=== PATIENT | male | born 1955 | race Two or more races ===

== ENCOUNTER 2022-09-08 12:36 | Emergency (ER) | payer OTHER, SELFPAY ==
--- NOTE | ~2022-09-08 | XR_ITS ---
EXAMINATION: XR ANKLE, RIGHT CLINICAL INFORMATION: Right ankle pain and swelling. COMPARISON: None available. TECHNIQUE: AP, lateral, and mortise views of the right ankle. Indicator arrow points to the lateral ankle. FINDINGS: The ankle joint and mortise are intact. There is no acute fracture or dislocation. The tarsal bones are normally aligned. Mild soft tissue swelling. XR/XR ankle RT min 3V IMPRESSION: Mild soft tissue swelling without acute underlying osseous abnormality.
--- NOTE | ~2022-09-08 | XR_ITS ---
EXAMINATION: XR FOOT, RIGHT CLINICAL INFORMATION: Right foot pain and swelling. COMPARISON: None available. TECHNIQUE: AP, lateral, and oblique views of the right foot. An indicator arrow points to the lateral foot. FINDINGS: The bones and soft tissues are normal. No fracture. Alignment is anatomic. Joint spaces are maintained. XR/XR foot RT min 3V IMPRESSION: Unremarkable right foot.
--- NOTE | ~2022-09-08 | US_ITS ---
EXAMINATION: US VENOUS ULTRASOUND WITH DOPPLER LOWER EXTREMITY, RIGHT CLINICAL INFORMATION: Right lower extremity edema. COMPARISON: None available. TECHNIQUE: Ultrasound of the deep veins is performed from the hip to the calf with compression sonography and color and pulse Doppler assessment. Spectral analysis with color-flow imaging is performed. FINDINGS: There is normal venous compression and respiratory variation and augmented flow. The visualized common femoral vein, superficial femoral vein, profunda femoral vein, popliteal vein, and the trifurcation region shows no evidence of deep venous thrombosis. No right popliteal cyst. The subcutaneous soft tissues are unremarkable. US/US venous duplex LE RT IMPRESSION: No evidence for deep venous thrombosis in the visualized veins of the right lower extremity.
--- NOTE | 2022-09-08 13:13 | ED_ITS ---
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 Reports difficulty walking and pain with weight bearing on his RLE, currently using a cane to ambulate. States his pain starts in his R foot and radiates up into his R lower leg. Denies fever, chills, cp, SOB, N/V, numbness/ tingling/ weakness. Denies hx of gout or VTE. Not currently on AC or diuretics. Related Data Allergies Allergy/AdvReac Type Severity Reaction Status Date / Time No Known Allergies Allergy Verified 09/08/22 13:21 Review of Systems Review of Systems: Constitutional: No Fever, No Chills ENT/Mouth: No Ear Pain, No Nasal Congestion Cardiovascular: No Chest Pain, No SOB Respiratory: No Cough, No Sputum, No Wheezing Gastrointestinal: No Nausea, No Vomiting, No Diarrhea, No Constipation, No Abdominal pain Genitourinary: No Dysuria, No Urinary Frequency, No Hematuria Musculoskeletal: + joint pain, No Myalgias, + Joint Swelling Skin: No Skin Lesions, No rash Neuro: No Weakness, No Numbness, No Paresthesias Yes all other systems are reviewed and are negative Constitutional: Constitutional: Reports as per [facility] Past Medical History Attestation statement: The following information was validated with the patient. Source: old records reviewed Social History Social History Alcohol intake: never Smoked in Last 30 Days: No Use of substances other than those prescribed or required for medical reasons: No Advance Directives: No Advance Directives Information Provided: Yes Advance Directives on File: No Physical Exam Vital Signs: Vital Signs: Last Vital Signs Temp 98.5 F 09/08/22 13:15 Pulse 78 09/08/22 17:36 Resp 16 09/08/22 17:36 BP 148/86 H 09/08/22 17:36 Pulse Ox 97 09/08/22 17:36 O2 Del Method Room Air 09/08/22 17:36 BMI result Body Mass Index 21.4 Const: General: cooperative, healthy appearing and no acute distress Orientation/consciousness: patient oriented x3 Limitations: no limitations HEENT: Head: Yes normal to inspection and Yes atraumatic Ears: hearing grossly normal bilaterally General nose exam: Normal external nose present Face and sinus: Yes normal facial exam Eyes: General: appearance normal, both eyes and all related structures EOM: EOMs intact bilaterally Neck: Neck: Yes normal visual inspection and Yes no meningeal signs Resp: Effort & Inspection: normal respiratory effort and no respiratory distress Auscultation: clear to auscultation bilaterally Cardio: Rate: regular rate Heart sounds: S1 normal heart sound present and S2 normal heart sound present Peripheral pulses: Peripheral pulses 2+ throughout GI: Inspection: Yes normal to inspection Skin: Rashes: no rashes Wounds: no wounds Neuro: General: patient oriented x3, tone normal and no meningeal signs Gait exam (Neuro): Normal gait present Extrem: Other: + R ankle and R foot with swelling, tender to palpation with dec ROM 2/2 pain/swelling. No overlying cyanosis, erythema, warmth. + Right calf tender and firm to palpation. Compartments soft. Neurovascularly intact. Sensation intact. Right upper extremity: normal to inspection Left upper extremity: normal to inspection Right lower extremity: edema; abnormal to inspection, ROM limited and no cyanosis Left lower extremity: normal to inspection Course Course Course Narrative: RME - 67 yo [place] speaking male with history of osteoarthritis, [place], HTN presents to the ER for evaluation of 3 days of nontraumatic RLE swelling and pain, making it hard for him to walk. No chest pain or SOB. On exam he has pitting edema of the ankle and foot only, warm but not erythematous. No pretibial swelling, no calf tenderness. Plan: lab workup, x-rays foot and ankle, LE US - 1700-- XR/XR foot RT min 3V IMPRESSION: Unremarkable right foot. XR/XR ankle RT min 3V IMPRESSION: Mild soft tissue swelling without acute underlying osseous abnormality. US/US venous duplex LE RT IMPRESSION: No evidence for deep venous thrombosis in the visualized veins of the right lower extremity. ? > Labs unremarkable. Will apply BHAVIK for compression/comfort and have patient follow-up with PCP Results discussed with patient including worrisome signs and symptoms and strict return precautions, and when to return to the emergency department. They verbalized understanding and feel safe for discharge at this time. Medical Decision Making Medical Decision Making [facility] Narrative: 67 year old male with history of arthritis requiring steroid injections 4 mo ago presenting to the ED complaining of constant RLE and right ankle pain/ swelling since waking up 3 days ago. VSS, physical exam significant for R ankle/ foot swelling and tenderness to palpation with a tender R calf. Concern for ankle sprain/strain vs occult fracture vs DVT vs peripheral edema. No evidence of cellulitis. Low suspicion for compartment syndrome, septic joint/arthritis or gout Plan: labs ordered in triage, foot/ ankle xray, US of LE Please refer to course for remaining clinical decision making, interpretation of labs/imaging results, and discussions with consultants and/or family members. Differential Diagnosis Differential Diagnoses: The differential diagnosis associated with the presentation includes As above Lab Data [facility] Lab Attestation statement: I reviewed the patient's lab results. 09/08/22 13:26 09/08/22 13:26 Labs: Lab Results 09/08/22 09/08/22 09/08/22 Range/Units 13:26 13:26 13:26 WBC 8.7 (4.8-10.8) X10*3/uL RBC 4.70 (4.60-5.80) X10*6/uL Hgb 13.9 L (14.0-18.0) g/dl Hct 43.0 (42.0-52.0) % MCV 91.5 (80.0-98.0) fL MCH 29.6 (27.0-33.0) pg MCHC 32.3 (31.0-36.0) g/dl RDW 12.4 (11.0-16.0) % Plt Count 208 (160-400) X10*3/uL MPV 10.6 (9.4-12.4) fL Immature Gran % (Auto) 0.5 H (0.0-0.4) % Neut % (Auto) 79.2 H (45-73) % Lymph % (Auto) 12.2 L (20-40) % [place] % (Auto) 7.2 (2-11) % Eos % (Auto) 0.6 (0-4) % Baso % (Auto) 0.3 (0-2) % Lymph # (Auto) 1.1 L (1.2-4.9) X10*3/uL [place] # (Auto) 0.6 (0.1-1.2) X10*3/uL Eos # (Auto) 0.1 (0.0-0.4) X10*3/uL Baso # (Auto) 0.0 (0.0-0.2) X10*3/uL Abs Immat Gran (auto) 0.04 H (0.00-0.03) X10*3/uL Absolute Neuts (auto) 6.9 (2.0-8.3) x10*3/uL Absolute Nucleated RBC 0.000 (0.0-0.012) X10*3/uL Nucleated RBC % (auto) 0.0 (0.0-0.2) /100WBC Sodium 140 (135-145) mmol/L Potassium 4.1 (3.3-5.1) mmol/L Chloride 103 (96-108) mmol/L Carbon Dioxide 31 H (22-29) mmol/L Anion Gap 10 L (12-20) BUN 9 (9-16) mg/dL Creatinine 0.88 (0.5-1.4) mg/dL Estim Creat Clear Calc 73.7 Estimated GFR > 60 Random Glucose 145 H (60-115) mg/dL Calcium 9.3 (8.4-10.2) mg/dL Magnesium 1.9 (1.6-2.6) mg/dL Total Bilirubin 0.9 (0.0-1.0) mg/dL Direct Bilirubin 0.2 (0.0-0.5) mg/dL AST 18 (5-37) U/L ALT 13 (0-40) U/L Alkaline Phosphatase 76 (39-117) U/L B-Natriuretic Peptide < 10 (<100) pg/mL Total Protein 6.9 (6.5-8.0) g/dL Albumin 4.0 (3.5-5.0) g/dL Independent Interpretation I performed an independent interpretation of an: Plain X-Ray and Ultrasound Radiology Impression Discussion of test interpretation with radiology: I have reviewed the radiologist's reading. External Record Review External record reviewed: Inpatient record, Office record, Outpatient record, Prior outpatient labs, Prior outpatient radiology, Primary care record and Outside ED record Tests considered The following testing was considered but not selected: As above Discharge Plan Discharge Clinical Impression: Ankle sprain and strain, Leg edema Patient Disposition: Home, Self-Care Instructions: Ankle Sprain (DC), Leg Edema (ED) Additional Instructions: Your blood work is reassuring. Her x-ray shows soft tissue swelling but no fracture. ultrasound was negative for blood clot Wear ankle brace for compression and support. Ice and elevate Take Tylenol Motrin as needed Follow-up with your doctor. If symptoms persist or worsen you develop chest pain, shortness of breath or fever, redness area return to the ED Page an?lisis de yevgeniy es tranquilizador. Page radiograf?a muestra inflamaci?n de los tejidos blandos ivette no fractura. ultrasonido fue negativo para co?gulo de yevgeniy Use severiano tobillera para compresi?n y soporte. hielo y elevar [place] Tylenol Motrin seg?n sea necesario Seguimiento con page m?dico. Si los s?ntomas persisten o empeoran, presenta dolor en el pecho, dificultad para respirar o fiebre, ?avani enrojecida. Regrese al servicio de urgencias. Referrals: [facility] [Primary Care Provider] - Interventions: ED Discharge Assessment Last Done: 09/08/22 17:36 Discharge Date/Time: 09/08/22 17:37 Print Language: Trinidadian
[2022-09-08 13:15] VITALS: BP 146/89; PULSE 96; RESP 18; TEMP 36.9; O2SAT 98; BMI 21.4
[2022-09-08 13:32] LABS: MANUAL DIFF FLAG NO
[2022-09-08 13:34] LABS: Basophils Percent Auto 0.3 % (0-2); Eosinophils Absolute Auto 0.1 X10*3/uL (0.0-0.4); Eosinophils Percent Auto 0.6 % (0-4); Hemoglobin 13.9 g/dl (14.0-18.0); Imm Gran Abs Auto 0.04 X10*3/uL (0.00-0.03); Imm Gran Pct Auto 0.5 % (0.0-0.4); Lymphocytes Absolute Auto 1.1 X10*3/uL (1.2-4.9); Lymphocytes Percent Auto 12.2 % (20-40); Mean Corpuscular HGB Conc 32.3 g/dl (31.0-36.0); Mean Corpuscular Hemoglobin 29.6 pg (27.0-33.0); Mean Corpuscular Volume 91.5 fL (80.0-98.0); Mean Platelet Volume 10.6 fL (9.4-12.4); Monocytes Absolute Auto 0.6 X10*3/uL (0.1-1.2); Monocytes Percent Auto 7.2 % (2-11); Neutrophils Absolute Auto 6.9 x10*3/uL (2.0-8.3); Neutrophils Percent Auto 79.2 % (45-73); Platelet Count 208 X10*3/uL (160-400); Red Cell Distribution Width 12.4 % (11.0-16.0); White Blood Count 8.7 X10*3/uL (4.8-10.8)
[2022-09-08 13:50] LABS: Alanine Aminotransferase 13 U/L (0-40); Alkaline Phosphatase 76 U/L (39-117); Anion Gap 10 (12-20); Aspartate Amino Transferase 18 U/L (5-37); Bilirubin Direct 0.2 mg/dL (0.0-0.5); Bilirubin Total 0.9 mg/dL (0.0-1.0); Blood Urea Nitrogen 9 mg/dL (9-16); Calcium 9.3 mg/dL (8.4-10.2); Carbon Dioxide 31 mmol/L (22-29); Chloride 103 mmol/L (96-108); Creatinine Clr Calc Pharmacy 73.7; Estimated Glomerular Filt Rate > 60; Glucose Random 145 mg/dL (60-115); Magnesium 1.9 mg/dL (1.6-2.6); Potassium 4.1 mmol/L (3.3-5.1); Sodium 140 mmol/L (135-145); Total Protein 6.9 g/dL (6.5-8.0)
[2022-09-08 13:55] LABS: B Type Natriuretic Peptide < 10 pg/mL (<100)
[2022-09-08 17:36] VITALS: BP 148/86; PULSE 78; RESP 16; O2SAT 97
== END 2022-09-08 17:37 | disposition home or self-care (01) ==
PROVIDERS: Physician Assistant; Emergency Provider Emergency Medicine
DX: S96.911A Strain of unspecified muscle and tendon at ankle and foot level, right foot, initial encounter (principal); S93.401A Sprain of unspecified ligament of right ankle, initial encounter; X58.XXXA Exposure to other specified factors, initial encounter; R60.0 Localized edema; M79.604 Pain in right leg; Y93.9 Activity, unspecified; Y92.9 Unspecified place or not applicable; Y99.9 Unspecified external cause status
CPT/HCPCS: 36415; 73610; 73630; 80048; 80076; 83735; 83880; 85025; 93971; 99284

== ENCOUNTER 2023-04-06 10:33 | Outpatient (REF) | payer OTHER, SELFPAY ==
[2023-04-06 11:21] LABS: MANUAL DIFF FLAG NO
[2023-04-06 11:23] LABS: Basophils Percent Auto 0.4 % (0-2); Eosinophils Absolute Auto 0.1 X10*3/uL (0.0-0.4); Eosinophils Percent Auto 1.3 % (0-4); Hematocrit 44.1 % (42.0-52.0); Hemoglobin 14.2 g/dl (14.0-18.0); Imm Gran Abs Auto 0.01 X10*3/uL (0.00-0.03); Imm Gran Pct Auto 0.2 % (0.0-0.4); Lymphocytes Percent Auto 21.2 % (20-40); Mean Corpuscular HGB Conc 32.2 g/dl (31.0-36.0); Mean Corpuscular Hemoglobin 29.6 pg (27.0-33.0); Mean Corpuscular Volume 92.1 fL (80.0-98.0); Mean Platelet Volume 11.7 fL (9.4-12.4); Monocytes Absolute Auto 0.4 X10*3/uL (0.1-1.2); Monocytes Percent Auto 8.2 % (2-11); Neutrophils Absolute Auto 3.3 x10*3/uL (2.0-8.3); Neutrophils Percent Auto 68.7 % (45-73); Platelet Count 183 X10*3/uL (160-400); Red Blood Count 4.79 X10*6/uL (4.60-5.80); Red Cell Distribution Width 12.5 % (11.0-16.0); White Blood Count 4.8 X10*3/uL (4.8-10.8)
[2023-04-06 12:26] LABS: Alanine Aminotransferase 15 U/L (0-40); Alkaline Phosphatase 61 U/L (39-117); Anion Gap 9 (12-20); Aspartate Amino Transferase 23 U/L (5-37); Bilirubin Total 1.2 mg/dL (0.0-1.0); Blood Urea Nitrogen 12 mg/dL (9-16); Calcium 9.5 mg/dL (8.4-10.2); Carbon Dioxide 33 mmol/L (22-29); Chloride 104 mmol/L (96-108); Cholesterol 177 mg/dL (<200); Estimated Glomerular Filt Rate > 60; Glucose Random 90 mg/dL (60-115); HDL Cholesterol 75 mg/dL (>40); LDL Cholesterol Calculated 91 mg/dL (<100); Potassium 4.2 mmol/L (3.3-5.1); Sodium 142 mmol/L (135-145); Triglycerides 57 mg/dL (<150)
[2023-04-06 12:36] LABS: Prostate Specific Antigen 12.87 ng/mL (<0.05-4.0)
[2023-04-06 12:45] LABS: Vitamin D 25-OH Total 22.6 ng/mL (>30)
== END 2023-04-06 10:34 | disposition home or self-care (01) ==
LOC: HO.10HDL 10:33
PROVIDERS: Visit Provider Internal Medicine
DX: Z12.5 Encounter for screening for malignant neoplasm of prostate (principal); F32.9 Major depressive disorder, single episode, unspecified; I12.9 Hypertensive chronic kidney disease with stage 1 through stage 4 chronic kidney disease, or unspecified chronic kidney disease; N18.9 Chronic kidney disease, unspecified; I70.8 Atherosclerosis of other arteries; I73.9 Peripheral vascular disease, unspecified; J44.9 Chronic obstructive pulmonary disease, unspecified; M81.8 Other osteoporosis without current pathological fracture; N20.0 Calculus of kidney; R97.20 Elevated prostate specific antigen [PSA]
CPT/HCPCS: 36415; 80053; 80061; 82306; 84153; 85025

== ENCOUNTER 2023-05-02 10:55 | Emergency (ER) | payer OTHER, SELFPAY ==
--- NOTE | ~2023-05-02 | CT_ITS ---
EXAMINATION: CTA ABDOMEN AND PELVIS CLINICAL INFORMATION: Rectal bleeding TECHNIQUE: Multiple axial images were obtained through the abdomen and pelvis before and after administration of 80 mL of Omnipaque 350 intravenously. Images were evaluated on independent dedicated 3-D workstation and 3-D images were reconstructed with concurrent radiologist supervision and subsequently interpreted. Specific vascular measurements are placed directly on the 3-D rendered images and are documented and stored in PACS. This CT examination was performed using dose optimization techniques as appropriate, variously including the following: *Automated exposure control. *Adjustment of mA and/or kV according to patient size (this includes techniques or standardized protocols for targeted exams where dose is matched to indication/reason for exam, i.e., extremities or head). *Use of iterative reconstruction technique. COMPARISON: None DLP: 721 mGy-cm. FINDINGS: VASCULAR: Abdominal aorta: Normal in caliber Iliac arteries: Patent and normal in caliber Mesenteric arteries: The celiac artery is patent. The SMA and proximal jejunal branches are patent. The WOJCIECH is patent. Renal arteries: Patent renal arteries bilaterally. Venous: Circumaortic left renal vein. NONVASCULAR: Lung Bases: Calcified granuloma in the left lower lobe. Liver, Gallbladder, Biliary Tree: The liver is normal in size. Multiple hyperenhancing low-density lesions in the liver most consistent with hepatic cysts. The gallbladder is unremarkable with no evidence of radiopaque gallstones, gallbladder wall thickening, or pericholecystic inflammatory changes. Pancreas: Unremarkable. Spleen: Unremarkable. Adrenal Glands: Unremarkable. Kidneys and Ureters: Chronic appearing scarring in the left upper pole. Otherwise the kidneys are normal in size. Normal cortical enhancement. No hydronephrosis or nephrolithiasis. Bladder: Unremarkable. Gastrointestinal Tract: Severe colonic diverticulosis. Hyperemic rectal mucosa, and prominent draining vein. No active extravasation. Abdominal Wall: Small right inguinal hernia containing a decompressed loop of small bowel. Lymph Nodes: Normal. Pelvic Viscera: Marked prostatomegaly Osseous Structures: Unremarkable. CT/CT gi bleed abd pel wo/w IVcon IMPRESSION: 1. Hyperemic rectal mucosa without active extravasation. 2. Severe colonic diverticulosis. No evidence of diverticulitis or diverticular bleed. Fleischner guidelines were followed.
[2023-05-02 11:01] VITALS: BP 133/85; PULSE 79; RESP 18; TEMP 37.2; O2SAT 97; BMI 21.4
[2023-05-02 12:20] LABS: MANUAL DIFF FLAG NO
[2023-05-02 12:21] LABS: Basophils Percent Auto 0.7 % (0-2); Eosinophils Absolute Auto 0.2 X10*3/uL (0.0-0.4); Eosinophils Percent Auto 3.5 % (0-4); Hematocrit 41.2 % (42.0-52.0); Hemoglobin 13.6 g/dl (14.0-18.0); Imm Gran Abs Auto 0.01 X10*3/uL (0.00-0.03); Imm Gran Pct Auto 0.2 % (0.0-0.4); Lymphocytes Absolute Auto 1.2 X10*3/uL (1.2-4.9); Mean Corpuscular Hemoglobin 29.9 pg (27.0-33.0); Mean Corpuscular Volume 90.5 fL (80.0-98.0); Mean Platelet Volume 10.6 fL (9.4-12.4); Monocytes Absolute Auto 0.5 X10*3/uL (0.1-1.2); Monocytes Percent Auto 9.9 % (2-11); Neutrophils Absolute Auto 2.7 x10*3/uL (2.0-8.3); Neutrophils Percent Auto 58.7 % (45-73); Platelet Count 191 X10*3/uL (160-400); Red Blood Count 4.55 X10*6/uL (4.60-5.80); Red Cell Distribution Width 12.8 % (11.0-16.0); White Blood Count 4.6 X10*3/uL (4.8-10.8)
[2023-05-02 12:39] LABS: Alanine Aminotransferase 16 U/L (0-40); Albumin Level 3.6 g/dL (3.5-5.0); Alkaline Phosphatase 71 U/L (39-117); Anion Gap 10 (12-20); Aspartate Amino Transferase 21 U/L (5-37); Bilirubin Direct 0.2 mg/dL (0.0-0.5); Bilirubin Total 0.5 mg/dL (0.0-1.0); Blood Urea Nitrogen 10 mg/dL (9-16); Calcium 9.3 mg/dL (8.4-10.2); Carbon Dioxide 30 mmol/L (22-29); Chloride 103 mmol/L (96-108); Creatinine Clr Calc Pharmacy 72.5; Estimated Glomerular Filt Rate > 60; Glucose Random 93 mg/dL (60-115); Lipase 19 U/L (8-78); Potassium 4.2 mmol/L (3.3-5.1); Sodium 139 mmol/L (135-145); Total Protein 6.7 g/dL (6.5-8.0)
--- NOTE | 2023-05-02 14:37 | ED.GENADULT ---
HPI - General Adult General Chief complaint: General Medical Stated complaint: Hemorrhoids Time Seen by Provider: 05/02/23 14:11 Source: patient and RN notes reviewed Mode of arrival: ambulatory Limitations: no limitations History of Present Illness HPI narrative: This is a 68-year-old Vietnamese-speaking male, with a past medical history hypertension, reported 5 heart attacks in [place], presenting to the emergency department with complaints of rectal bleeding since this morning. Patient states that 2 days ago he felt constipated and was straining very hard. He states that he ultimately passed a bowel movement, states that afterwards he felt as though a hemorrhoid popped out of his rectum. He states that this morning he had noticed wetness in his pants, he noticed that there was a significant amount of blood in his underwear as well as his pants. He states that he is still bleeding rectally. He denies any history of similar symptoms in the past. Denies any lightheadedness dizziness, chest pain, shortness breath, abdominal pain, nausea, vomiting or diarrhea. Denies history of similar symptoms. He has not on anticoagulants. No other complaints or concerns at this time. MD complaint: Rectal bleeding Onset (ago): day(s) Radiation: non-radiation Relieving factors: none Exacerbating factors: none Associated symptoms: denies other symptoms Treatments prior to arrival: none Related Data Previous Rx's Medication Instructions Recorded docusate calcium 240 mg capsule 240 mg PO DAILY #30 caps 05/02/23 hydrocortisone 2.5 % topical cream 1 appl VA DAILY PRN hemorrhoids 05/02/23 with perineal applicator #30 grams (Anusol-HC) polyethylene glycol 3350 17 17 g PO DAILY #119 grams 05/02/23 gram/dose oral powder (Miralax) Allergies Allergy/AdvReac Type Severity Reaction Status Date / Time No Known Allergies Allergy Verified 09/08/22 13:21 Review of Systems Review of Systems: Yes all other systems are reviewed and are negative Constitutional: Constitutional: Reports as per [facility] Past Medical History Attestation statement: The following information was validated with the patient. Social History Social History Alcohol intake: never Smoked in Last 30 Days: No Use of substances other than those prescribed or required for medical reasons: No Advance Directives: No Advance Directives Information Provided: No Physical Exam ED Vital Signs: Vital Signs - 24 hr 05/02/23 11:01 05/02/23 16:00 Temperature 99.0 F Pulse Rate 79 60 Respiratory Rate 18 12 Blood Pressure 133/85 137/83 Pulse Oximetry 97 99 Oxygen Delivery Method Room Air Room Air BMI result Body Mass Index 21.4 Const General: cooperative, comfortable and no acute distress Orientation/consciousness: patient oriented x3 Limitations: no limitations HENMT Head: Yes normal to inspection, Yes normocephalic and Yes atraumatic Ears: hearing grossly normal bilaterally General nose exam: Normal external nose present Face and sinus: Yes normal facial exam Mouth: Normal oral and palatal mucosa present, oropharynx normal and moist mucous membranes Throat: Yes posterior oropharynx normal Eyes General: appearance normal, both eyes and all related structures Eyelids: Yes eyelids normal Conjunctivae: conjunctivae normal Sclerae: sclerae normal Pupils: Equal, round and reactive pupils present EOM: EOMs intact bilaterally Neck Neck: Yes normal visual inspection, Yes full ROM and Yes no lymphadenopathy Lymphatic: no lymphadenopathy noted Chest Chest palpation & inspection: normal inspection of the chest Resp Effort & Inspection: normal respiratory effort and able to speak in complete sentences Auscultation: clear to auscultation bilaterally, no crackles, no rales, no rhonchi and no wheezes Cardio Rate: regular rate Rhythm: regular rhythm Heart sounds: S1 normal heart sound present and S2 normal heart sound present GI Other: Rectal examination performed with distribution field technicianIvis, at bedside. There is a approximately 3 cm oval shaped hemorrhoid noted to the external rectum at about the 8 o'clock position. Tenderness palpation, hemorrhoid is not indurated or warm, no surrounding erythema. There is bright red blood blood noted to the external rectum as well as internally Abdomen is soft, nontender, nondistended. Inspection: Yes normal to inspection Skin General skin exam: no rashes or lesions noted Trauma: no lacerations or abrasions Wounds: no wounds Neuro General: patient oriented x3 and moves all extremities Cranial nerves: Yes Equal, round and reactive pupils present Extrem General: Yes normal to inspection Right upper extremity: normal to inspection Left upper extremity: normal to inspection Right lower extremity: normal to inspection Left lower extremity: normal to inspection Course Reevaluation(s) Reevaluation #1: CT scan does not reveal any active bleeding, but does show severe diverticuluosis and hemoroids. Discussed findings with pt. Given outpatient GI referral, anusol, docusate, miralax. Given return precautions. Pt understands and agrees with plan. Stable for D/C. Time: 16:35 Medications Administered Discontinued Medications Generic Name Dose Route Start Last Admin Trade Name Luis PRN Reason Stop Dose Admin Iohexol 80 ml 05/02/23 15:57 05/02/23 15:57 Iohexol 350 Mg/Ml 100 Ml Infus..Btl IV 05/02/23 15:58 80 ml ONCE ONE Administration Medical Decision Making Medical Decision Making [facility] Narrative: This is a 68-year-old male, with a history of hypertension, and reported myocardial infarctions in [place], not currently on any medications, who presents to the emergency department for evaluation of rectal bleeding since this morning. Patient states that he was constipated 2 days ago and was straining, noticed a hemorrhoid from his rectum. He states that this morning he woke up in the morning and noticed blood in his underwear as well as his pants. He denies history of similar symptoms in the past. On arrival, vital signs within normal limits. Patient is nontoxic appearing. Abdomen is soft and nontender. Rectal examination revealing external hemorrhoid however notable bright red blood per rectum noted. Given findings on physical examination, will obtain CT GI bleed abdomen and pelvis with and without IV contrast. Coags, and type and screen ordered. Patient is hemodynamically stable. Differential Diagnosis Differential Diagnoses: The differential diagnosis associated with the presentation includes Upper GI bleed, lower GI bleed, hemorrhoid, internal hemorrhoids, malignancy, mass Admission/Observation Consideration of admission/observation: Escalation of care including admission/observation considered Lab Data [facility] Lab Attestation statement: I reviewed the patient's lab results. Normocytic anemia noted with a hemoglobin and hematocrit of 13.6/41.2, chemistry within normal limits. Stool occult positive 05/02/23 12:15 05/02/23 12:15 Labs: Lab Results 05/02/23 05/02/23 05/02/23 Range/Units 12:15 15:10 15:20 WBC 4.6 L (4.8-10.8) X10*3/uL RBC 4.55 L (4.60-5.80) X10*6/uL Hgb 13.6 L (14.0-18.0) g/dl Hct 41.2 L (42.0-52.0) % MCV 90.5 (80.0-98.0) fL MCH 29.9 (27.0-33.0) pg MCHC 33.0 (31.0-36.0) g/dl RDW 12.8 (11.0-16.0) % Plt Count 191 (160-400) X10*3/uL MPV 10.6 (9.4-12.4) fL Immature Gran % (Auto) 0.2 (0.0-0.4) % Neut % (Auto) 58.7 (45-73) % Lymph % (Auto) 27.0 (20-40) % Banner % (Auto) 9.9 (2-11) % Eos % (Auto) 3.5 (0-4) % Baso % (Auto) 0.7 (0-2) % Lymph # (Auto) 1.2 (1.2-4.9) X10*3/uL Banner # (Auto) 0.5 (0.1-1.2) X10*3/uL Eos # (Auto) 0.2 (0.0-0.4) X10*3/uL Baso # (Auto) 0.0 (0.0-0.2) X10*3/uL Abs Immat Gran (auto) 0.01 (0.00-0.03) X10*3/uL Absolute Neuts (auto) 2.7 (2.0-8.3) x10*3/uL Absolute Nucleated RBC 0.000 (0.0-0.012) X10*3/uL Nucleated RBC % (auto) 0.0 (0.0-0.2) /100WBC PT 12.1 (11.1-13.3) SEC INR 1.0 (0.9-1.1) APTT 30.9 (26.0-36.4) SEC Sodium 139 (135-145) mmol/L Potassium 4.2 (3.3-5.1) mmol/L Chloride 103 (96-108) mmol/L Carbon Dioxide 30 H (22-29) mmol/L Anion Gap 10 L (12-20) BUN 10 (9-16) mg/dL Creatinine 0.88 (0.5-1.4) mg/dL Estim Creat Clear Calc 72.5 Estimated GFR > 60 Random Glucose 93 (60-115) mg/dL Calcium 9.3 (8.4-10.2) mg/dL Total Bilirubin 0.5 (0.0-1.0) mg/dL Direct Bilirubin 0.2 (0.0-0.5) mg/dL AST 21 (5-37) U/L ALT 16 (0-40) U/L Alkaline Phosphatase 71 (39-117) U/L Total Protein 6.7 (6.5-8.0) g/dL Albumin 3.6 (3.5-5.0) g/dL Lipase 19 (8-78) U/L Stool Occult Blood POSITIVE (NEGATIVE) Blood Type Antibody Screen 05/02/23 Range/Units 15:21 WBC (4.8-10.8) X10*3/uL RBC (4.60-5.80) X10*6/uL Hgb (14.0-18.0) g/dl Hct (42.0-52.0) % MCV (80.0-98.0) fL MCH (27.0-33.0) pg MCHC (31.0-36.0) g/dl RDW (11.0-16.0) % Plt Count (160-400) X10*3/uL MPV (9.4-12.4) fL Immature Gran % (Auto) (0.0-0.4) % Neut % (Auto) (45-73) % Lymph % (Auto) (20-40) % Banner % (Auto) (2-11) % Eos % (Auto) (0-4) % Baso % (Auto) (0-2) % Lymph # (Auto) (1.2-4.9) X10*3/uL Banner # (Auto) (0.1-1.2) X10*3/uL Eos # (Auto) (0.0-0.4) X10*3/uL Baso # (Auto) (0.0-0.2) X10*3/uL Abs Immat Gran (auto) (0.00-0.03) X10*3/uL Absolute Neuts (auto) (2.0-8.3) x10*3/uL Absolute Nucleated RBC (0.0-0.012) X10*3/uL Nucleated RBC % (auto) (0.0-0.2) /100WBC PT (11.1-13.3) SEC INR (0.9-1.1) APTT (26.0-36.4) SEC Sodium (135-145) mmol/L Potassium (3.3-5.1) mmol/L Chloride (96-108) mmol/L Carbon Dioxide (22-29) mmol/L Anion Gap (12-20) BUN (9-16) mg/dL Creatinine (0.5-1.4) mg/dL Estim Creat Clear Calc Estimated GFR Random Glucose (60-115) mg/dL Calcium (8.4-10.2) mg/dL Total Bilirubin (0.0-1.0) mg/dL Direct Bilirubin (0.0-0.5) mg/dL AST (5-37) U/L ALT (0-40) U/L Alkaline Phosphatase (39-117) U/L Total Protein (6.5-8.0) g/dL Albumin (3.5-5.0) g/dL Lipase (8-78) U/L Stool Occult Blood (NEGATIVE) Blood Type O Positive Antibody Screen NEGATIVE Radiology Impression Discussion of test interpretation with radiology: I have reviewed the radiologist's reading. Radiologist Impression: [place] [id number] CT Scan Report Signed Patient: Mariusz Segovia MR#: [id number] : 1955 Acct:[id number] Age/Sex: 68 / M ADM Date: 05/02/23 Loc: .ED Attending Dr: Ordering Physician: Ro Pickett Date of Service: 05/02/23 Procedure(s): CT gi bleed abd pel wo/w IVcon Accession Number(s): [id number] cc: Gladys Bartholomew MD; Ro Pickett~ EXAMINATION: CTA ABDOMEN AND PELVIS CLINICAL INFORMATION: Rectal bleeding TECHNIQUE: Multiple axial images were obtained through the abdomen and pelvis before and after administration of 80 mL of Omnipaque 350 intravenously. Images were evaluated on independent dedicated 3-D workstation and 3-D images were reconstructed with concurrent radiologist supervision and subsequently interpreted. Specific vascular measurements are placed directly on the 3-D rendered images and are documented and stored in PACS. This CT examination was performed using dose optimization techniques as appropriate, variously including the following: *Automated exposure control. *Adjustment of mA and/or kV according to patient size (this includes techniques or standardized protocols for targeted exams where dose is matched to indication/reason for exam, i.e., extremities or head). *Use of iterative reconstruction technique. COMPARISON: None DLP: 721 mGy-cm. FINDINGS: VASCULAR: Abdominal aorta: Normal in caliber Iliac arteries: Patent and normal in caliber Mesenteric arteries: The celiac artery is patent. The SMA and proximal jejunal branches are patent. The WOJCIECH is patent. Renal arteries: Patent renal arteries bilaterally. Venous: Circumaortic left renal vein. NONVASCULAR: Lung Bases: Calcified granuloma in the left lower lobe. Liver, Gallbladder, Biliary Tree: The liver is normal in size. Multiple hyperenhancing low-density lesions in the liver most consistent with hepatic cysts. The gallbladder is unremarkable with no evidence of radiopaque gallstones, gallbladder wall thickening, or pericholecystic inflammatory changes. Pancreas: Unremarkable. Spleen: Unremarkable. Adrenal Glands: Unremarkable. Kidneys and Ureters: Chronic appearing scarring in the left upper pole. Otherwise the kidneys are normal in size. Normal cortical enhancement. No hydronephrosis or nephrolithiasis. Bladder: Unremarkable. Gastrointestinal Tract: Severe colonic diverticulosis. Hyperemic rectal mucosa, and prominent draining vein. No active extravasation. Abdominal Wall: Small right inguinal hernia containing a decompressed loop of small bowel. Lymph Nodes: Normal. Pelvic Viscera: Marked prostatomegaly Osseous Structures: Unremarkable. CT/CT gi bleed abd pel wo/w IVcon IMPRESSION: 1. Hyperemic rectal mucosa without active extravasation. 2. Severe colonic diverticulosis. No evidence of diverticulitis or diverticular bleed. Fleischner guidelines were followed. Dictated By: Marcelino Bowling MD Chronic Conditions Patient?s care impacted by: Hypertension Discharge Plan Discharge Clinical Impression: Rectal bleed, Hemorrhoid, Diverticulosis Patient Disposition: Home, Self-Care Instructions: Hemorrhoids (ED), Rectal Bleeding (ED), Diverticulosis (ED), [place]itz [place] (DC) Additional Instructions: You were seen in the emergency department due to constipation rectal bleeding. Your CT scan does not show any active bleeding. You also have severe colonic diverticulosis. There has no evidence of diverticulitis. Please use Anusol, MiraLax and docusate. Please call GI, call tomorrow to make an appointment. If any new or worsening symptoms occur including but not limited to chest pain, shortness of breath, worsening bleeding, abdominal pain, please return for re-evaluation. Usted fue atendido en urgencias por estre?imiento, rectorragia. Page tomograf?a computarizada no muestra robby?n sangrado activo. Tambi?n tiene diverticulosis col?josefina grave. No hay evidencia de diverticulitis. Utilice Anusol, MiraLax y docusate. Por favor llame a GI, llame ma?mookie para programar severiano jack. Si se presenta alg?n s?ntoma nuevo o que empeora, incluidos, entre otros, dolor en el pecho, dificultad para respirar, empeoramiento del sangrado y dolor abdominal, regrese para severiano nueva evaluaci?n. Prescriptions: New hydrocortisone [Anusol-HC] 2.5 % cream with perineal applicator 1 appl VA DAILY PRN (Reason: hemorrhoids) Qty: 30 0RF docusate calcium 240 mg capsule 240 mg PO DAILY Qty: 30 0RF polyethylene glycol 3350 [Miralax] 17 gram/dose powder 17 g PO DAILY Qty: 119 0RF Referrals: [facility] [place] [facility] [Provider Group] Interventions: ED Discharge Assessment Last Done: 05/02/23 18:07 Discharge Date/Time: 05/02/23 18:07 Print Language: Vietnamese
[2023-05-02 15:14] LABS: OBS Int Ctl Valid YES; OBS1 POSITIVE (NEGATIVE)
[2023-05-02 15:30] LABS: Prothrombin Time 12.1 SEC (11.1-13.3)
--- NOTE | 2023-05-02 15:30 | PC.NURSE ---
20g IV placed in left forearm. labs obtain T&S sent
[2023-05-02 15:33] LABS: Partial Thromboplastin Time 30.9 SEC (26.0-36.4)
[2023-05-02] MEDS: iohexoL 350 MG/ML 100 ML INFUS..BTL 80 ML IV (15:57)
[2023-05-02 16:00] VITALS: BP 137/83; PULSE 60; RESP 12; O2SAT 99
== END 2023-05-02 18:07 | disposition home or self-care (01) ==
PROVIDERS: Physician Assistant Medical; Emergency Provider Emergency Medicine; PCP Internal Medicine
DX: K64.9 Unspecified hemorrhoids (principal); K62.5 Hemorrhage of anus and rectum; K57.30 Diverticulosis of large intestine without perforation or abscess without bleeding; Z79.899 Other long term (current) drug therapy
CPT/HCPCS: 36415; 74178; 80048; 80076; 82272; 83690; 85025; 85610; 85730; 86850; 86900; 86901; 99284; Q9967

== ENCOUNTER 2023-05-21 13:24 | Outpatient (AMB) | payer OTHER, SELFPAY ==
--- NOTE | 2023-05-21 11:18 | A.OFFVIS_ITS ---
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 Language: Estonian Information Interpreted: non-clinical & clinical Accompanied by: Self / Same As Patient Allergies No Known Allergies Allergy (Verified 05/21/23 13:35) Medication List - Last Reconciled 05/21/23 by Rowena Khoury MD acetaminophen mg PO albuterol sulfate 90 mcg/actuation (Ventolin HFA) 2 puffs inhalation Q4-6H PRN aspirin 81 mg PO DAILY pzhpifsaog-bjpzjevb-kjocblgljb 160-9-4.8 mcg/actuation (Breztri Aerosphere) inhalations inhalation docusate calcium 240 mg PO DAILY finasteride 5 mg PO DAILY hydrocortisone 2.5% (Anusol-HC) 1 appl [place] DAILY PRN lisinopril 10 mg PO DAILY polyethylene glycol 3350 (Miralax) 17 grams PO DAILY rosuvastatin 10 mg PO BEDTIME tamsulosin mg PO DAILY trazodone 100 mg PO BEDTIME HPI HPI Comments History of Present Illness Details Bhupinder 68 year old --STRA[employer] - elevated PSA 04/06/23--- PSA 12.87 on tamsulon and proscar - pt states restarted by PCP about 2 wks ago moved from [facility] in [place] for 11 months, but did not have insurance so has been out of all meds until recently states had prostate bx about 8 years ago- he did not understand if biopsies were positive for cancer or not states 2 surgeries for kidney stones about 12 years ago UA - negative blood; Bladder scan PVR 24 mL prostate exam- moderately enlarged, discrete nodule was not palpated Plan--US Retroperitoneum Repeat PSA in 3 months FU in 4 months [facility] Medical History (Updated 05/21/23 @ 14:57 by Rowena Khoury MD) CHF (congestive heart failure) HTN (hypertension) BPH (benign prostatic hyperplasia) PVD (peripheral vascular disease) COPD (chronic obstructive pulmonary disease) Asthma Surgical History (Updated 05/21/23 @ 13:36 by CHARITO Haskins) No pertinent past surgical history Family History (Updated 05/21/23 @ 14:01 by CHARITO Haskins) Father Prostate cancer COVID Mother No problems noted. Social History (Updated 05/21/23 @ 14:02 by CHARITO Haskins) Alcohol intake: never Patient Tobacco Use Status: Former Tobacco user Quit Date: 2008 Questionnaire AUA Symptom Score AUA Incomplete emptying - It does not feel like I empty my bladder all the way.: 5 - Almost always Frequency - I have to go again less than two hours after I finish urinating.: 2 - Less than half the time Intermittency - I stop and start again several times when I urinate.: 5 - Almost always Urgency - It is hard to wait when I have to urinate.: 3 - About half the time Weak stream - I have a weak urinary stream.: 3 - About half the time Straining - I have to push or strain to begin urination.: 3 - About half the time Nocturia - I get up to urinate after I go to bed until the time I get up in the morning.: 5 time or more AUA Symptom Score: 26 Quality of life due to urinary symptoms: If you were to spend the rest of your life with your urinary condition the way it is now, how would you feel about that?: Mixed: about equally satisfied and dissatisfied Source: Ho BARBER, Aimee MARIE Jr, O'Kan MP, et al, and the Measurement Committee of the [employer]. The [place] [employer] symptom index for benign prostatic hyperplasia. J Urol. 1992; 148: 1997-1735. Copyright 1992 [employer] Review of Systems Const All systems reviewed & are unremarkable except as noted in HPI and below Reports no additional complaints Eyes Reports no additional complaints ENT Reports no additional complaints Card Denies dyspnea Resp Denies cough and Denies dyspnea GI Reports no additional complaints Musc Reports no additional complaints Skin/Breast Denies rash and Denies unusual bruising Neuro Reports no additional complaints Psych Reports no additional complaints Endo Reports no additional complaints Mario/Lymph Reports no additional complaints Aller/Immun Reports no additional complaints Physical Exam Const Other: Appears older than stated age General: no acute distress and well developed Orientation/consciousness: patient oriented x3 HEENT Head: Yes normocephalic and Yes atraumatic Eyes Conjunctivae: conjunctivae normal Neck Neck: Yes normal visual inspection Chest Chest palpation & inspection: normal inspection of the chest Resp Effort & Inspection: normal respiratory effort Cardio Rate: regular rate GI Inspection: Yes normal to inspection Palpation (GI): Soft to palpation Other: Prostate Exam: moderately enlarged, discrete nodule was not palpated Skin General skin exam: no rashes or lesions noted Neuro General: patient oriented x3 Extrem General: No pedal edema Psych Appearance: grossly normal Affect: normal affect Results AMB Urinalysis, Automated UA Leukoctes 15 Ketty/uL Last Edit by CHARITO Haskins on 05/21/23 13:58 UA Nitrite Negative Last Edit by CHARITO Haskins on 05/21/23 13:58 UA Urobilinogen 0.2 mg/dL Last Edit by CHARITO Haskins on 05/21/23 13:5 8 UA Protein 15 mg/dL Last Edit by CHARITO Haskins on 05/21/23 13:58 UA pH 7.0 Last Edit by CHARITO Haskins on 05/21/23 13:58 UA Blood 0 Nicolas/uL Last Edit by CHARITO Haskins on 05/21/23 13:58 UA Specific [place] 1.020 Last Edit by CHARITO Haskins on 05/21/23 13: 58 UA Ketone Negative Last Edit by CHARITO Haskins on 05/21/23 13:58 UA Bilirubin 0 mg/dL Last Edit by CHARITO Haskins on 05/21/23 13:58 UA Glucose 0 mg/dL Last Edit by CHARITO Haskins on 05/21/23 13:58 Results Reviewed Results Reviewed: Laboratory Last Values Urine pH (Auto) 7.0 05/21/23 13:57 Specific [place] (Auto) 1.020 05/21/23 13:57 Urine Protein (Auto) 15 mg/dL 05/21/23 13:57 Glucose (UA)(Auto) 0 mg/dL 05/21/23 13:57 Urine Ketones (Auto) Negative 05/21/23 13:57 Urine Blood (Auto) 0 Nicolas/uL 05/21/23 13:57 Urine Nitrite (Auto) Negative 05/21/23 13:57 Urine Bilirubin (Auto) 0 mg/dL 05/21/23 13:57 Urine Urobilinogen (Auto) 0.2 mg/dL 05/21/23 13:57 Leukocyte Esterase (Auto) 15 Ketty/uL 05/21/23 13:57 Assessment & Plan Assessment & Plan (1) Elevated PSA: Code(s): R97.20 - Elevated prostate specific antigen [PSA] (2) BPH loc w urin obs/LUTS: Code(s): N40.1 - Benign prostatic hyperplasia with lower urinary tract symptoms (3) History of kidney stones: Code(s): Z87.442 - Personal history of urinary calculi Plan US Retroperitoneum Repeat PSA in 3 months FU in 4 months Orders: Orders US retroperitoneal comp 05/21/23 Z87.442 - Personal history of urinary calculi, N40.1 - Benign prostatic hyperplasia with lower urinary tract symptoms, R97.20 - Elevated prostate specific antigen [PSA] PSA,Total (Free>4and<10) 3 Months R97.20 - Elevated prostate specific antigen [P SA] AMB Urinalysis Automated 05/21/23 Z13.9 - Encounter for screening, unspecified AMB Post Void Residual by ultrasound 05/21/23 N39.8 - Other specified disorders of urinary system Quality Reporting (2019) Benign Prostatic Hyperplasia ([facility] 771) AUA symptom score: 26 Quality of life due to urinary symptoms: If you were to spend the rest of your life with your urinary condition the way it is now, how would you feel about that?: Mixed: about equally satisfied and dissatisfied Coding Level of Care Code New Pt Level 4 (84239) Diagnoses Elevated PSA R97.20 BPH loc w urin obs/LUTS N40.1 History of kidney stones Z87.442
== END 2023-05-21 14:52 | disposition home or self-care (01) ==
PROVIDERS: PCP Internal Medicine; Visit Provider Urology
DX: R97.20 Elevated prostate specific antigen [PSA] (principal); N40.1 Benign prostatic hyperplasia with lower urinary tract symptoms; Z87.442 Personal history of urinary calculi
CPT/HCPCS: 99204

== ENCOUNTER → 2023-05-21 13:24 | Outpatient (BNVA) | payer OTHER, SELFPAY | PROVIDERS: PCP Internal Medicine; Visit Provider Urology | DX: R97.20 Elevated prostate specific antigen [PSA] (principal); N40.1 Benign prostatic hyperplasia with lower urinary tract symptoms; R33.9 Retention of urine, unspecified; R39.198 Other difficulties with micturition; R35.1 Nocturia; Z87.442 Personal history of urinary calculi | CPT/HCPCS: 81003; 99202 ==

== ENCOUNTER 2023-08-09 09:50 | Outpatient (REF) | payer OTHER, SELFPAY ==
[2023-08-09 10:22] LABS: MANUAL DIFF FLAG NO
[2023-08-09 10:39] LABS: Basophils Percent Auto 0.5 % (0-2); Eosinophils Absolute Auto 0.1 X10*3/uL (0.0-0.4); Eosinophils Percent Auto 2.4 % (0-4); Hematocrit 44.3 % (42.0-52.0); Hemoglobin 14.4 g/dl (14.0-18.0); Imm Gran Abs Auto 0.01 X10*3/uL (0.00-0.03); Imm Gran Pct Auto 0.2 % (0.0-0.4); Lymphocytes Percent Auto 22.9 % (20-40); Mean Corpuscular HGB Conc 32.5 g/dl (31.0-36.0); Mean Corpuscular Hemoglobin 30.3 pg (27.0-33.0); Mean Corpuscular Volume 93.3 fL (80.0-98.0); Mean Platelet Volume 11.4 fL (9.4-12.4); Monocytes Absolute Auto 0.3 X10*3/uL (0.1-1.2); Monocytes Percent Auto 7.4 % (2-11); Neutrophils Absolute Auto 2.8 x10*3/uL (2.0-8.3); Neutrophils Percent Auto 66.6 % (45-73); Platelet Count 181 X10*3/uL (160-400); Red Blood Count 4.75 X10*6/uL (4.60-5.80); Red Cell Distribution Width 12.6 % (11.0-16.0); White Blood Count 4.2 X10*3/uL (4.8-10.8)
[2023-08-09 11:11] LABS: Alanine Aminotransferase 21 U/L (0-40); Alkaline Phosphatase 81 U/L (39-117); Anion Gap 13 (12-20); Aspartate Amino Transferase 23 U/L (5-37); Bilirubin Total 0.6 mg/dL (0.0-1.0); Blood Urea Nitrogen 14 mg/dL (9-16); Calcium 9.7 mg/dL (8.4-10.2); Carbon Dioxide 29 mmol/L (22-29); Chloride 103 mmol/L (96-108); Cholesterol 158 mg/dL (<200); Estimated Glomerular Filt Rate > 60; Glucose Random 95 mg/dL (60-115); HDL Cholesterol 72 mg/dL (>40); LDL Cholesterol Calculated 76 mg/dL (<100); Potassium 4.1 mmol/L (3.3-5.1); Sodium 141 mmol/L (135-145); Triglycerides 53 mg/dL (<150)
[2023-08-12 03:58] LABS: TS Negative Control Passed; TS Panel A 0; TS Panel B 0; TS Positive Control Passed; TSpotTB Negative (Negative)
== END 2023-08-09 09:51 | disposition home or self-care (01) ==
LOC: HO.10HDL 09:50
PROVIDERS: Visit Provider Internal Medicine
DX: I12.9 Hypertensive chronic kidney disease with stage 1 through stage 4 chronic kidney disease, or unspecified chronic kidney disease (principal); N18.9 Chronic kidney disease, unspecified; I70.8 Atherosclerosis of other arteries; J44.9 Chronic obstructive pulmonary disease, unspecified; N40.1 Benign prostatic hyperplasia with lower urinary tract symptoms
CPT/HCPCS: 36415; 80053; 80061; 85025; 86481

== ENCOUNTER 2023-10-20 08:34 | Emergency (ER) | payer OTHER, SELFPAY ==
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
[2023-10-20 08:43] VITALS: BP 174/88; PULSE 74; RESP 16; TEMP 36.9; O2SAT 98; BMI 21.4
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
[2023-10-20] MEDS: Acetaminophen 325 MG TABLET 975 MG PO (11:08)
[2023-10-20 13:32] VITALS: BP 132/91; PULSE 70; RESP 16; TEMP 36.5; O2SAT 98
== END 2023-10-20 13:33 | disposition home or self-care (01) ==
PROVIDERS: Emergency Provider Emergency Medicine; PCP Internal Medicine
DX: S16.1XXA Strain of muscle, fascia and tendon at neck level, initial encounter (principal); V73.6XXA Passenger on bus injured in collision with car, pick-up truck or van in traffic accident, initial encounter; R51.9 Headache, unspecified; M54.50 Low back pain, unspecified; Y93.89 Activity, other specified; Y92.414 Local residential or business street as the place of occurrence of the external cause; Y99.9 Unspecified external cause status
CPT/HCPCS: 70450; 72100; 72125; 99283; 99284

== ENCOUNTER 2023-12-09 09:14 | Outpatient (REF) | payer OTHER, SELFPAY ==
[2023-12-09 11:34] LABS: PSA,Total (Free>4and<10) 12.91 ng/mL (0.00-4.00)
[2023-12-09 11:47] LABS: Folate 15.1 ng/mL (> or = 4.0); Vitamin B12 277 pg/mL (200-900)
== END 2023-12-09 09:15 | disposition home or self-care (01) ==
LOC: HO.10HDL 09:14
PROVIDERS: Urology; Visit Provider Internal Medicine
DX: Z12.5 Encounter for screening for malignant neoplasm of prostate (principal); R97.20 Elevated prostate specific antigen [PSA]; E78.00 Pure hypercholesterolemia, unspecified; F32.2 Major depressive disorder, single episode, severe without psychotic features; I73.9 Peripheral vascular disease, unspecified; I10 Essential (primary) hypertension
CPT/HCPCS: 36415; 82607; 82746; 84153

== ENCOUNTER 2023-12-22 14:27 | Outpatient (AMB) | payer OTHER, SELFPAY ==
--- NOTE | 2023-12-22 14:31 | A.OFFVIS_ITS ---
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 Name: [id number] Information Interpreted: non-clinical & clinical Accompanied by: Self / Same As Patient Allergies No Known Allergies Allergy (Verified 12/22/23 14:34) Medication List - Last Reconciled 12/22/23 by Rowena Khoury MD acetaminophen (Tylenol Extra Strength) 500 mg PO Q6H PRN acetaminophen mg PO albuterol sulfate 90 mcg/actuation (Ventolin HFA) 2 puffs inhalation Q4-6H PRN aspirin 81 mg PO DAILY fwueftsbmu-ytgjzoki-xlbtvvlqyw 160-9-4.8 mcg/actuation (Breztri Aerosphere) inhalations inhalation docusate calcium 240 mg PO DAILY finasteride 5 mg PO DAILY hydrocortisone 2.5% (Anusol-HC) 1 appl [place] DAILY PRN lidocaine 5% (Lidoderm) 1 patch topical DAILY PRN MDD remove after 12 hours lisinopril 10 mg PO DAILY polyethylene glycol 3350 (Miralax) 17 grams PO DAILY rosuvastatin 10 mg PO BEDTIME tamsulosin mg PO DAILY trazodone 100 mg PO BEDTIME HPI Comments Details: 12/22/23--Repeat PSA 12/09/23 - no change - Discussed prostate biopsy. Discussed risks to include but not limited to pain, blood in stool, urine and semen, septicemia, need to repeat biopsy. 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 moved from [facility] in [place] for 11 months, but did not have insurance so has been out of all meds until recently states had prostate bx about 8 years ago- he did not understand if biopsies were positive for cancer or not, states 2 surgeries for kidney stones about 12 years ago. UA - negative blood; Bladder scan PVR 24 mL prostate exam- moderately enlarged, discrete nodule was not palpated. Plan--US Retroperitoneum, Repeat PSA in 3 months. FU in 4 months 1/2/24--- PSA 12.87 [facility] Medical History CHF (congestive heart failure) HTN (hypertension) BPH (benign prostatic hyperplasia) PVD (peripheral vascular disease) COPD (chronic obstructive pulmonary disease) Asthma Surgical History No pertinent past surgical history Family History Father Prostate cancer COVID Mother No problems noted. Social History Alcohol intake: never Patient Tobacco Use Status: Former Tobacco user Review of Systems Const All systems reviewed & are unremarkable except as noted in HPI and below Reports no additional complaints Eyes Reports no additional complaints ENT Reports no additional complaints Card Reports no additional complaints Resp Reports no additional complaints GI Reports no additional complaints Reports as per HPI Musc Reports no additional complaints Skin/Breast Reports system reviewed and no additional complaints, except as documented Neuro Reports no additional complaints Psych Reports no additional complaints Endo Reports no additional complaints Mario/Lymph Reports no additional complaints Aller/Immun Reports no additional complaints Office Procedures Post Void Residual Post Residual Void Post Void Residual (PVR): 0 [id number] Void Residual by ultrasound Results AMB Urinalysis, Automated UA Leukoctes 0 Ketty/uL Last Edit by CHARITO Thayer on 12/22/23 14:41 UA Nitrite Negative Last Edit by CHARITO Thayer on 12/22/23 14:41 UA Urobilinogen 0.2 mg/dL Last Edit by Y[facility] on 12/22/23 14:4 1 UA Protein 15 mg/dL Last Edit by CHARITO Thayer on 12/22/23 14:41 UA pH 6.0 Last Edit by CHARITO Thayer on 12/22/23 14:41 UA Blood 25 Nicolas/uL Last Edit by Yvette [facility] on 12/22/23 14:41 UA Specific [place] 1.015 Last Edit by CHARITO Thayer on 09/18/24 14: 41 UA Ketone Negative Last Edit by CHARITO Thayer on 12/22/23 14:41 UA Bilirubin 0 mg/dL Last Edit by ROLDAN ThayerA on 12/22/23 14:41 UA Glucose 0 mg/dL Last Edit by ROLDAN ThayerA on 12/22/23 14:41 Results Reviewed Results Reviewed: Laboratory Last Values Urine pH (Auto) 6.0 12/22/23 14:33 Specific [place] (Auto) 1.015 12/22/23 14:33 Urine Protein (Auto) 15 mg/dL 12/22/23 14:33 Glucose (UA)(Auto) 0 mg/dL 12/22/23 14:33 Urine Ketones (Auto) Negative 12/22/23 14:33 Urine Blood (Auto) 25 Nicolas/uL 12/22/23 14:33 Urine Nitrite (Auto) Negative 12/22/23 14:33 Urine Bilirubin (Auto) 0 mg/dL 12/22/23 14:33 Urine Urobilinogen (Auto) 0.2 mg/dL 12/22/23 14:33 Leukocyte Esterase (Auto) 0 Ketty/uL 12/22/23 14:33 Assessment & Plan Assessment & Plan (1) Elevated PSA: Code(s): R97.20 - Elevated prostate specific antigen [PSA] Category: Medical (2) BPH loc w urin obs/LUTS: Code(s): N40.1 - Benign prostatic hyperplasia with lower urinary tract symptoms Category: Medical (3) History of kidney stones: Code(s): Z87.442 - Personal history of urinary calculi Category: Medical Plan Elevated PSA, discussed prostate biopsy Orders: Orders AMB Post Void Residual by ultrasound 12/22/23 N40.1 - Benign prostatic hyperplasia with lower urinary tract symptoms AMB Urinalysis Automated 12/22/23 Z13.9 - Encounter for screening, unspecified Coding Level of Care Code Est Pt Level 4 (72290) Diagnoses Elevated PSA R97.20 BPH loc w urin obs/LUTS N40.1 History of kidney stones Z87.442 CPT Codes Post Residual Void - PVR CPT Code: [id number] Void Residual by ultrasound ([id number])
== END 2023-12-22 14:53 | disposition home or self-care (01) ==
PROVIDERS: PCP Internal Medicine; Visit Provider Urology
DX: R97.20 Elevated prostate specific antigen [PSA] (principal); N40.1 Benign prostatic hyperplasia with lower urinary tract symptoms; Z87.442 Personal history of urinary calculi
CPT/HCPCS: 99214

== ENCOUNTER → 2023-12-22 14:27 | Outpatient (BNVA) | payer OTHER, SELFPAY | PROVIDERS: PCP Internal Medicine; Visit Provider Urology | DX: R97.20 Elevated prostate specific antigen [PSA] (principal); N40.1 Benign prostatic hyperplasia with lower urinary tract symptoms; Z87.442 Personal history of urinary calculi | CPT/HCPCS: 51798; 81003; 99212 ==

== ENCOUNTER 2024-03-10 08:07 | Outpatient (REF) | payer OTHER, SELFPAY ==
[2024-03-10] MEDS: Lidocaine HCl 1 % MPF 5 ML VIAL 15 ML SUBCUT (09:23)
--- NOTE | 2024-03-11 13:57 | W.PM.OPN ---
Operative Note Operative Note Date of Service: 03/10/24 Narrative: PreOperative Diagnosis:? ? Elevated PSA Post Operative Diagnosis:??Elevated PSA Procedure:?1. Transrectal ultrasound guided biopsy of the prostate 12 core 2. Transrectal ultrasound measurement of prostate 3. Transrectal ultrasound guided pudendal nerve block Surgeon:?Dr Rowena Khoury Anesthesia:? Local Indications for procedure: Elevated PSA Procedure: Preoperative antibiotics confirmed. After informed consent was verified the patient was placed on the procedure table in left lateral position. Patient identity confirmed. Safety pause time-out performed. Digital rectal exam performed to dilate rectal sphincter, iodine mixed with lubricant jelly 30 cc placed per rectum. Ultrasound probe was placed per rectum. The prostate was visualized. The prostate was measured width 5.05 cm, height 4.11 cm, length 5.58 cm with a volume of 60,8 mL. An ultrasound guided pudendal nerve block was performed using 10 cc of 1% lidocaine. A 12 core biopsy was performed from the left base, left mid, left apex and right base, mid, apex 2 biopsies from each section. The ultrasound probe was removed and digital palpation of the prostate for 1-2 minutes for hemostasis was performed. The patient tolerated the procedure well. Complications: None
== END 2024-03-10 08:08 | disposition home or self-care (01) ==
LOC: HO.US 08:07
PROVIDERS: PCP Internal Medicine; Visit Provider Urology
DX: R97.20 Elevated prostate specific antigen [PSA] (principal)
CPT/HCPCS: 55700; 76942; 88305; 88344; J2003

== ENCOUNTER → 2024-03-10 08:07 | Outpatient (BNV) | payer OTHER, SELFPAY | PROVIDERS: PCP Internal Medicine; Visit Provider Urology | DX: R97.20 Elevated prostate specific antigen [PSA] (principal) | CPT/HCPCS: 55700; 76872; 76942 ==

== ENCOUNTER 2024-03-31 11:39 | Outpatient (AMB) | payer OTHER, SELFPAY ==
--- NOTE | 2024-03-31 11:39 | A.OFFVIS_ITS ---
Intake Visit Reasons: Prostate biopsy results (set) Intake Note: Patient is present for PROSTATE BIOPSY RESULTS Urology Medication:TAMSULOSIN,FINASTERIDE Antibiotic Allergy:NONE Blood Thinner:ASPIRIN Medical Coding Instructor Required: Yes Medical Coding Instructor Language: Remote Coders Name: [id number] Information Interpreted: non-clinical & clinical Allergies No Known Allergies Allergy (Verified 03/31/24 11:40) HPI Comments Details: 03/31/24--Status post prostate biopsies 03/10/2024 for elevated PSA. Discussed results. Prostate biopsies benign. 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 Will start proscar 5 mg daily. FU PSA in 6 months 12/22/23--Repeat PSA 12/09/23 - no change 12.91- Discussed prostate biopsy. Dis cussed risks to include but not limited to pain, blood in stool, urine and semen, septicemia, need to repeat biopsy. 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 moved from [facility] in [place] for 11 months, but did not have insurance so has been out of all meds until recently states had prostate bx about 8 years ago- he did not understand if biopsies were positive for cancer or not, [facility] 2 surgeries for kidney stones about 12 years ago. UA - negative blood; Bladder scan PVR 24 mL prostate exam- moderately enlarged, discrete nodule was not palpated. Plan--US Retroperitoneum, Repeat PSA in 3 months. FU in 4 months 04/06/23--- PSA 12.87 [facility] Medical History CHF (congestive heart failure) HTN (hypertension) BPH (benign prostatic hyperplasia) PVD (peripheral vascular disease) COPD (chronic obstructive pulmonary disease) Asthma Surgical History No pertinent past surgical history Family History Father Prostate cancer COVID Mother No problems noted. Social History Alcohol intake: never Patient Tobacco Use Status: Former Tobacco user Telehealth Telehealth Telehealth Platform: Telephone Location of provider rendering services: practice address Location of patient: address on file Patient Identification confirmed using: Name, : Yes Telehealth method: voice only Patient verbally consented to treatment: Yes Patient verbally consented to billing insurance company: Yes Patient informed of any privacy concerns related to visit: Yes Minutes spent on Phone/Video with Pt.: 18 Results Reviewed Results Reviewed: Collected: 03/10/24 Location: [facility] Received: 03/10/24 ADDENDUM REPORT Addendum Addendum #1 (H): Multiplex immunostain shows positive P504S and patchy positive p63 and HMWkeratin in the complex gland, 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 There is no evidence of an invasive lesion. Controls stain appropriately. Electronically Signed By: Minerva Colin 03/15/24 1415 Diagnosis A: Left base lateral: Benign prostatic tissue. B: Left base medial: Benign prostatic tissue. C: Left mid lateral: Benign prostatic tissue. D: Left mid medial: Benign prostatic tissue. E: Left apex lateral: Benign prostatic tissue. F: Left apex medial: Benign prostatic tissue. G: Right base lateral: Benign prostatic tissue. H: Right base medial: Benign prostatic tissue with focal complex gland (see comment). I: Right mid lateral: Benign prostatic tissue. J: Right mid medial: Benign prostatic tissue. K: Right apex lateral: Benign prostatic tissue. L: Right apex medial: Benign prostatic tissue. Comment: Patient: Mariusz Segovia Age/Sex: 69/M MR#: [id number] Page 1 of 3 Surgical Pathology [id number] Scattered foci of inflammation are present. (H): The complex gland has mild crowding and focal visible nucleoli raising the possibility of an intraepithelial process. Immunostains pending; addendum to follow. Clinical History Elevated PSA Microscopic Description Microscopic sections reviewed. Material Received A: Left base lateral B: Left base medial C: Left mid lateral D: Left mid medial E: Left apex lateral F: Left apex medial G: Right base lateral H: Right base medial I: Right mid lateral J: Right mid medial K: Right apex lateral L: Right apex medial Assessment & Plan Assessment & Plan (1) Elevated PSA: Code(s): R97.20 - Elevated prostate specific antigen [PSA] Category: Medical (2) BPH loc w urin obs/LUTS: Code(s): N40.1 - Benign prostatic hyperplasia with lower urinary tract symptoms Category: Medical Plan Status post prostate biopsies 03/10/2024 for elevated PSA. Prostate biopsies benign. Will start proscar 5 mg daily. Fu PSA in 6 months Medications: New finasteride 5 mg PO DAILY 90 tabs 3RF Changed From tamsulosin PO DAILY To tamsulosin 0.4 mg PO DAILY 90 caps 3RF Patient Instructions: The patient had an opportunity to ask questions regarding treatment plan. The patient expressed understanding and agreement with the above treatment plan. The patient is aware they should contact our office by phone for worsening of their current condition or the appearance of new symptoms. Compliance is encouraged with any medications and followup testing that is ordered. It is a privilege to be allowed the opportunity to participate in the urologic care of your patient. If you have any questions or concerns regarding treatment for the above conditions please do not hesitate to contact me. The office telep dewayne contact is [phone]. This note is constructed in part using voice recognition software. While every effort has been made to ensure accuracy die repairer forging errors may have been included. Yours sincerely, Rowena Khoury MD Coding Level of Care Code Tele Est Pt Level 4 (40532) Diagnoses Elevated PSA R97.20 BPH loc w urin obs/LUTS N40.1
== END 2024-03-31 14:26 | disposition home or self-care (01) ==
LOC: HO.HUSH 11:39
PROVIDERS: PCP Internal Medicine; Visit Provider Urology
DX: R97.20 Elevated prostate specific antigen [PSA] (principal); N40.1 Benign prostatic hyperplasia with lower urinary tract symptoms
CPT/HCPCS: 99442

== ENCOUNTER → 2024-03-31 11:39 | Outpatient (BNVA) | payer OTHER, SELFPAY | PROVIDERS: PCP Internal Medicine; Visit Provider Urology ==